=== PATIENT | female | born 1985 | race African-American/Black ===

== ENCOUNTER 2017-01-26 13:33 | Emergency (ER) | payer OTHER ==
[~2017-01-26] VITALS: Ht 167.6 cm; Wt 78.5 kg
[~2017-01-26 13:33] MED LIST: DOXYCYCLINE MO100 MG ORAL; IBUPROFEN600 MG ORAL; NKM
[2017-01-26 13:36] VITALS: BP 107/71
[2017-01-26] MEDS ORDERED: BACTRIM DS TAB1 EAC1 ORAL (14:11)
[2017-01-26] MEDS ORDERED: IBUPROFEN600 MG ORAL (14:11)
[2017-01-26] MEDS ORDERED: CEPHALEXIN500 MG ORAL (14:11)
[2017-01-26] MEDS ORDERED: BACITRACIN15 GM TOPIC (14:11)
[2017-01-26 14:30] VITALS: BP 107/71
--- NOTE | 2017-01-26 20:43 | Emergency Room Report ---
History of Present Illness General Chief Complaint: Skin Rash/Abscess Source: Patient Present Illness HPI The patient is a 31-year-old female presenting for possible skin infection. She states that she noticed pain and swelling to the right buttock area two days prior. Pain is a 7/10 dull ache and worse with touch. Does not radiate. She states that she noticed white discharge from the area yesterday. She denies any fever or chills. She denies any injury to the area. She denies any other symptoms Allergies: Coded Allergies: NO KNOWN ALLERGIES (Unverified Allergy, Unknown, 05/14/15) Patient History Past Medical History: see triage record Pertinent Family History: none Last Menstrual Period: 01/24/17 Now: No Reviewed Nursing Documentation: PMH: Agreed, PSxH: Agreed Nursing Documentation-PMH Past Medical History: No Stated History Review of Systems All Other Systems: negative except mentioned in HPI Physical Exam Vital Signs Date Time Temp Pulse Resp B/P (MAP) Pulse Ox O2 Delivery O2 Flow Rate FiO2 01/26/17 13:36 97.7 76 18 107/71 100 Room Air Sp02 EP Interpretation: reviewed, normal General Appearance: no apparent distress, alert, GCS 15, non-toxic Head: normocephalic, atraumatic Eyes: bilateral eye normal inspection, bilateral eye PERRL ENT: hearing grossly normal, normal pharynx, no angioedema, normal voice Rectal: deferred Genitourinary: normal inspection, no CVA tenderness Musculoskeletal: back normal, gait/station normal, normal range of motion, non- tender Neurologic: alert, oriented x3, responsive, motor strength/tone normal, sensory intact, speech normal Psychiatric: judgement/insight normal, memory normal, mood/affect normal, no suicidal/homicidal ideation Skin: rash - 2cm in diameter erythema to R superior buttock. No tracking to rectum. No surrounding erythema. TTP. Not fluctuant Lymphatic: no adenopathy Medical Decision Making PA Attestation Dr. Rousseau is my supervising physician. Patient management was discussed with my supervising physician Diagnostic Impression: Primary Impression: Abscess ER Course The patient is a 31-year-old female presenting for possible skin infection. Differential diagnoses considered but not limited to: abscess, cellulitis, insect bite, perianal abscess PE: afebrile. NAD Small non fluctuant abscess of R buttock. There is no indication for incision and drainage at this time. The patient will be discharged home with prescription for Keflex and Bactrim. She is to follow up with primary doctor. She is given indications to return for I and D. Last Vital Signs Date Time Temp Pulse Resp B/P (MAP) Pulse Ox O2 Delivery O2 Flow Rate FiO2 01/26/17 14:30 97.7 76 18 107/71 100 Room Air Status: improved Disposition: HOME, SELF-CARE Condition: Improved Scripts Bacitracin (Bacitracin) 28.4 Gm Oint...g. 1 APPLIC TOPIC THREE TIMES A DAY, #28 GM Prov: TERZIANJOSLYN P.A. 01/26/17 Trimethoprim/Sulfamethoxazole 160/800* (BACTRIM DS TABLET*) 1 Each Tablet 1 TAB ORAL TWICE A DAY, #14 TAB Prov: TERZIANMERLEY P.A. 01/26/17 Cephalexin* (KEFLEX*) 500 Mg Capsule 500 MG ORAL EVERY 12 HOURS, #14 CAP 0 Refills Prov: TERZIANJOSLYN P.A. 01/26/17 Ibuprofen* (MOTRIN*) 600 Mg Tablet 600 MG ORAL Q8H Y for For Pain, #30 TAB 0 Refills Prov: TERZIAN,JOSLYN P.A. 01/26/17 Referrals: [facility]OS[facility]/,REFERRING (PCP) Patient Instructions: Abscess Additional Instructions: I discussed my findings with the patient. All questions and concerns have been answered. Treatment and medication compliance have been addressed. I advised the patient that they need to follow up with PMD in 3-5 days. Return to ED if symptoms worsen, new symptoms arise, or if needed for any reason. Patient verbalized understanding of discharge instructions. Please return for further care if the pain worsens, if you notice fever or chills, if the abscess grows in size, or for any reason. JOSLYN GUARDADO Jan 26, 2017 20:43
== END 2017-01-26 14:50 | disposition left against medical advice (07) ==
LOC: EMR 14:46
DX: L02.31 Cutaneous abscess of buttock (principal)
CPT/HCPCS: 99284

== ENCOUNTER 2017-02-21 14:20 | Emergency (ER) | payer OTHER ==
[~2017-02-21] VITALS: Ht 167.6 cm; Wt 80.3 kg
[~2017-02-21 14:20] MED LIST changes: +BACITRACIN15 GM TOPIC; +BACTRIM DS TAB1 EAC1 ORAL; +CEPHALEXIN500 MG ORAL
[2017-02-21] MEDS ORDERED: CEPHALEXIN500 MG ORAL (15:25)
[2017-02-21] MEDS ORDERED: BACITRACIN15 GM TOPIC (15:25)
[2017-02-21] MEDS ORDERED: BACTRIM DS TAB1 EAC1 ORAL (15:25)
[2017-02-21 15:30] VITALS: BP 127/75
--- NOTE | 2017-02-21 20:15 | Emergency Room Report ---
History of Present Illness General Chief Complaint: Skin Rash/Abscess Source: Patient Present Illness HPI The patient is a 31-year-old female presenting for possible skin infection. She was seen in this emergency department one month prior for the same complaint and was placed on Keflex and Bactrim. She states that she took 3 days worth. She states that symptoms initially resolved and then returned. Pain is now 8/10 dull aching worse with touch. She denies any discharge from the area. She denies any other symptoms including N, V, F, chills, SOB, dysuria Allergies: Coded Allergies: NO KNOWN ALLERGIES (Unverified Allergy, Unknown, 05/14/15) Patient History Past Medical History: see triage record Pertinent Family History: none Reviewed Nursing Documentation: PMH: Agreed, PSxH: Agreed Nursing Documentation-PMH Past Medical History: No Stated History Review of Systems All Other Systems: negative except mentioned in HPI Physical Exam Vital Signs Date Time Temp Pulse Resp B/P (MAP) Pulse Ox O2 Delivery O2 Flow Rate FiO2 02/21/17 14:41 98.4 86 20 114/69 99 Room Air Sp02 EP Interpretation: reviewed, normal General Appearance: no apparent distress, alert, GCS 15, non-toxic Head: normocephalic, atraumatic Eyes: bilateral eye normal inspection, bilateral eye PERRL ENT: hearing grossly normal, normal pharynx, no angioedema, normal voice Gastrointestinal: normal bowel sounds, non tender, soft, non-distended, no guarding, no rebound Musculoskeletal: back normal, gait/station normal, normal range of motion, non- tender Neurologic: alert, oriented x3, responsive, motor strength/tone normal, sensory intact, speech normal Psychiatric: judgement/insight normal, memory normal, mood/affect normal, no suicidal/homicidal ideation Skin: rash - 3cm in diamater indurated erythematous region of the L anterior thigh. Tender. Lymphatic: no adenopathy Medical Decision Making PA Attestation Dr. Linares is my supervising physician. Patient management was discussed with my supervising physician Diagnostic Impression: Primary Impression: Cellulitis Qualified Codes: L03.116 - Cellulitis of left lower limb ER Course The patient is a 31-year-old female presenting for skin infection Differential diagnoses considered but not limited to: abscess, cellulitis, insect bite, contact dermatitis, among others PE: Afebrile. NAD 3cm in diameter indurated erythematous region of the L anterior thigh. Tender. Hot to the touch. No opening. No DC. No Fluctuance. The patient is again given prescriptions for antibiotics and this informed that she needs to complete them. She understands She will follow up with her primary doctor. ER precautions given Last Vital Signs Date Time Temp Pulse Resp B/P (MAP) Pulse Ox O2 Delivery O2 Flow Rate FiO2 02/21/17 15:30 98.4 84 16 127/75 99 Room Air Status: improved Disposition: HOME, SELF-CARE Condition: Improved Scripts Bacitracin (Bacitracin) 28.4 Gm Oint...g. 1 APPLIC TOPIC THREE TIMES A DAY, #30 GM Prov: JOSLYN GUARDADO.A. 02/21/17 Trimethoprim/Sulfamethoxazole 160/800* (BACTRIM DS TABLET*) 1 Each Tablet 1 TAB ORAL TWICE A DAY, #14 TAB Prov: JOSLYN GUARDADO P.A. 02/21/17 Cephalexin* (KEFLEX*) 500 Mg Capsule 500 MG ORAL EVERY 6 HOURS, #28 CAP Prov: JOSLYN GUARDADO P.A. 02/21/17 Referrals: [facility],REFERRING (PCP) Patient Instructions: Rash Additional Instructions: I discussed my findings with the patient. All questions and concerns have been answered. Treatment and medication compliance have been addressed. I advised the patient that they need to follow up with PMD in 3-5 days. Return to ED if symptoms worsen, new symptoms arise, or if needed for any reason. Patient verbalized understanding of discharge instructions. JOSLYN GUARDADO Feb 21, 2017 20:15
== END 2017-02-21 15:30 | disposition home or self-care (01) ==
LOC: EMR 15:10
DX: L03.116 Cellulitis of left lower limb (principal); R21 Rash and other nonspecific skin eruption
CPT/HCPCS: 99284

== ENCOUNTER 2017-02-26 13:19 | Emergency (ER) | payer OTHER ==
[~2017-02-26] VITALS: Ht 167.6 cm; Wt 80.3 kg
[2017-02-26 13:36] VITALS: BP 104/68
--- NOTE | 2017-02-26 14:14 | Emergency Room Report ---
History of Present Illness General Chief Complaint: Skin Rash/Abscess Source: Patient Present Illness HPI 31-year-old female presents to the emergency department complaining of pain that is 10 out of 10 in severity, swelling, erythema, tenderness to localized area of the right upper buttock. Patient states she has been taking antibiotic for abscess however it is not improving. Patient states that she initially refused incision and drainage however she believes that this time it is necessary. Patient denies trauma or fall. Patient denies fevers, chills, nausea, vomiting, rashes or lesions elsewhere. Patient states she is up-to- date with vaccinations. She denies history of immunocompromise.Denies CP, Palpitations, LOC, AMS, dizziness, Changes in Vision, Sensation, paresthesias, or a sudden severe headache. Allergies: Coded Allergies: NO KNOWN ALLERGIES (Unverified Allergy, Unknown, 05/14/15) Patient History Past Medical History: see triage record Past Surgical History: none Pertinent Family History: none Now: No Immunizations: UTD Reviewed Nursing Documentation: PMH: Agreed, PSxH: Agreed Nursing Documentation-PMH Past Medical History: No Stated History Review of Systems All Other Systems: negative except mentioned in HPI Physical Exam Vital Signs Date Time Temp Pulse Resp B/P (MAP) Pulse Ox O2 Delivery O2 Flow Rate FiO2 02/26/17 13:26 98.2 79 20 104/68 99 Room Air Sp02 EP Interpretation: reviewed, normal General Appearance: no apparent distress, alert, GCS 15, non-toxic Head: normocephalic, atraumatic Eyes: bilateral eye normal inspection, bilateral eye PERRL ENT: hearing grossly normal, normal voice Neck: full range of motion Respiratory: lungs clear, normal breath sounds, speaking full sentences Cardiovascular #1: regular rate, rhythm Musculoskeletal: back normal, gait/station normal, normal range of motion, non- tender Neurologic: alert, oriented x3, responsive, motor strength/tone normal, sensory intact, speech normal Skin: no rash, warm/dry, well hydrated, other - 2cm right buttock induration, fluctuance, erythema, swelling noted, no blisters, no vesicles. Procedures Incision and Drainage Incision and Drainage : Consent: Verbal Site: right upper buttock Blade Size: 11 I & D Procedure: betadine prep Wound Location: other - right upper buttock Wound's Depth, Shape: superficial Wound Length (cm): 1 Wound Explored: contaminated - 20cc of purulent d/c expressed Irrigated w/ Saline (ccs): 500 Anesthesia: 1% Lidocaine Volume Anesthetic (ccs): 2 Splint Applied?: No Sling Applied?: No Patient Tolerated: Well Complications: None Medical Decision Making PA Attestation Dr. Greenberg is my supervising Physician whom patient management has been discussed with. Diagnostic Impression: Primary Impression: Abscess ER Course 31-year-old female presents to the emergency department complaining of pain that is 10 out of 10 in severity, swelling, erythema, tenderness to localized area of the right upper buttock. Patient states she has been taking antibiotic for abscess however it is not improving. Patient states that she initially refused incision and drainage however she believes that this time it is necessary. Patient denies trauma or fall. Patient denies fevers, chills, nausea, vomiting, rashes or lesions elsewhere. Patient states she is up-to- date with vaccinations. She denies history of immunocompromise.Denies CP, Palpitations, LOC, AMS, dizziness, Changes in Vision, Sensation, paresthesias, or a sudden severe headache. Ddx considered but are not limited to cellulitis, abscess, cystic acne, necrotizing fasciitis, insect bite. Vital signs: are WNL, pt. is afebrile H&PE are most consistent with 2 cm abscess of the right upper buttock. ORDERS: none required at this time, the diagnosis is clinical ED INTERVENTIONS: -I & D. DISCHARGE: At this time pt. is stable for d/c to home. Will provide printed patient care instructions, and any necessary prescriptions. Care plan and follow up instructions have been discussed with the patient prior to discharge. Last Vital Signs Date Time Temp Pulse Resp B/P (MAP) Pulse Ox O2 Delivery O2 Flow Rate FiO2 02/26/17 13:36 98.2 20 104/68 99 Room Air 02/26/17 13:26 79 Disposition: HOME, SELF-CARE Condition: Stable Scripts Mupirocin Calcium (Bactroban) 15 Gm Cream..g. 1 APPLIC TOPIC THREE TIMES A DAY, #15 GM Prov: Yanique Angulo P.A. 02/26/17 Acetaminophen* (TYLENOL EXTRA STRENGTH*) 500 Mg Tablet 500 MG ORAL Q6H, #20 TAB 0 Refills Prov: Yanique Angulo P.A. 02/26/17 Doxycycline Hyclate* (VIBRAMYCIN*) 100 Mg Capsule 100 MG ORAL EVERY 12 HOURS for 7 Days, #14 CAP 0 Refills Prov: Yanique Angulo 02/26/17 Referrals: NON PHYSICIAN (PCP) Patient Instructions: Abscess Additional Instructions: Take medications as directed. Follow up with a Primary Care Provider in 3-5 days, even if your symptoms have resolved. --Please review list of primary care clinics, if you do not already have a primary care provider Return sooner to ED if new symptoms occur, or current symptoms become worse. - Please note that this Emergency Department Report was dictated using [employer] technology software, occasionally this can lead to erroneous entry secondary to interpretation by the dictation equipment. Yanique Angulo Feb 26, 2017 14:14
[2017-02-26] MEDS ORDERED: Lidocaine 1% MPF 10mg/ml 5ml INJ ONE (14:15)
[2017-02-26] MEDS ORDERED: VIBRAMYCIN100 MG ORAL (14:26)
[2017-02-26] MEDS ORDERED: TYLENOL EXTRA500 MG ORAL (14:26)
[2017-02-26] MEDS ORDERED: BACTROBAN CR1 APPLIC TOPIC (14:26)
[2017-02-26 14:56] VITALS: BP 104/68
== END 2017-02-26 14:56 | disposition home or self-care (01) ==
LOC: EMR 14:04
DX: L02.31 Cutaneous abscess of buttock (principal)
CPT/HCPCS: 10060; 99284

== ENCOUNTER 2017-03-05 05:32 | Emergency (ER) | payer OTHER ==
[~2017-03-05] VITALS: Ht 167.6 cm; Wt 77.6 kg
[~2017-03-05 05:32] MED LIST changes: +BACTROBAN CR1 APPLIC TOPIC; +TYLENOL EXTRA500 MG ORAL; +VIBRAMYCIN100 MG ORAL
[2017-03-05 05:54] VITALS: BP 109/74
[2017-03-05] MEDS ORDERED: Lidocaine 1% 10mg/ml/Epi 0.005mg/ml 10ml vial INJ ONE (06:15)
[2017-03-05] MEDS ORDERED: Lidocaine 1% 10mg/ml/EPI 0.01mg/ml 50ml INJ ONE ×2 (06:22→07:30)
[2017-03-05 06:43] VITALS: BP 115/78
--- NOTE | 2017-03-05 07:06 | Emergency Room Report ---
History of Present Illness General Chief Complaint: Skin Rash/Abscess Source: Patient Present Illness HPI Patient 31-year-old female who presented after several days of increased right- sided buttock swelling. Patient prior history of abscess. She did not take her antibiotics after recently having I incision and drainage. Patient denied any fever. She denied history of HIV or diabetes. As she denied other locations of swelling or pain. She denied injection drug use. Allergies: Coded Allergies: NO KNOWN ALLERGIES (Unverified Allergy, Unknown, 05/14/15) Patient History Past Medical History: see triage record Last Menstrual Period: Feb 13, 2017 Reviewed Nursing Documentation: PMH: Agreed, PSxH: Agreed Nursing Documentation-PMH Past Medical History: No Stated History Review of Systems All Other Systems: negative except mentioned in HPI Physical Exam Vital Signs Date Time Temp Pulse Resp B/P (MAP) Pulse Ox O2 Delivery O2 Flow Rate FiO2 03/05/17 05:33 97.9 69 14 109/74 99 Room Air General Appearance: well appearing, no apparent distress, alert, GCS 15, non- toxic Head: normocephalic, atraumatic ENT: hearing grossly normal, normal voice Neck: full range of motion, supple Respiratory: no respiratory distress, speaking full sentences Musculoskeletal: normal inspection, no calf tenderness Neurologic: normal gait Psychiatric: mood/affect normal Skin: other - fluctuance to right buttock Procedures Laceration/Wound Repair Laceration/Wound Repair : Consent: Verbal Wound's Depth, Shape: superficial Wound Length (cm): 2 Wound Explored: clean Betadine Prep?: Yes Anesthesia: Lidocaine w/ Epi Volume Anesthetic (ccs): 3 Wound Debrided: minimal Patient Tolerated: Well Complications: None Medical Decision Making Diagnostic Impression: Primary Impression: Abscess ER Course Patient presented for skin rash. Differential diagnosis included was not limited to abscess, cellulitis, folliculitis, Fourniere's gangrene. The patient has abscess incised and drained.The patient is advised to follow up with primary care doctor in 2 days for wound recheck. Patient is advised to return if any worsening condition or if any changes in status that are concerning. Last Vital Signs Date Time Temp Pulse Resp B/P (MAP) Pulse Ox O2 Delivery O2 Flow Rate FiO2 03/05/17 06:43 71 20 115/78 100 Room Air 03/05/17 05:54 97.9 Status: improved Disposition: HOME, SELF-CARE Condition: Stable Referrals: [facility],REFERRING (PCP) Patient Instructions: Taz Bruner Mar 05, 2017 07:06
== END 2017-03-05 06:44 | disposition home or self-care (01) ==
LOC: EMR 06:06
DX: L02.31 Cutaneous abscess of buttock (principal)
CPT/HCPCS: 10060; 99283; Z7502

== ENCOUNTER 2017-04-03 20:20 | Emergency (ER) | payer OTHER ==
[~2017-04-03] VITALS: Ht 167.6 cm; Wt 79.4 kg
[2017-04-03 21:00] VITALS: BP 118/78
--- NOTE | 2017-04-03 21:15 | Emergency Room Report ---
History of Present Illness General Chief Complaint: Upper Respiratory Illness Source: Patient Present Illness [facility] This is a 31-year-old female with no significant past medical history. She presents with chief complaint of cough for one to 2 days. Her daughter is sick also. Mom sick also. She denies any fever chills but no nausea no vomiting. No complaint. Allergies: Coded Allergies: NO KNOWN ALLERGIES (Unverified Allergy, Unknown, 05/14/15) Patient History Past Medical History: see triage record, old chart reviewed Past Surgical History: none Pertinent Family History: none Social History: Denies: smoking Last Menstrual Period: mar 23 Now: No : 1 Immunizations: other Reviewed Nursing Documentation: PMH: Agreed, PSxH: Agreed Nursing Documentation-PMH Past Medical History: No Stated History Review of Systems Eye: Denies: eye pain, blurred vision ENT: Denies: ear pain, nose congestion, throat swelling Respiratory: Reports: cough, Denies: shortness of breath Cardiovascular: Denies: chest pain, palpitations Gastrointestinal: Denies: abdominal pain, diarrhea, nausea, vomiting Musculoskeletal: Denies: back pain, joint pain Skin: Denies: rash Neurological: Denies: headache, numbness Endocrine: Denies: increased thirst, increased urine Hematologic/Lymphatic: Denies: easy bruising All Other Systems: negative except mentioned in HPI Physical Exam Vital Signs Date Time Temp Pulse Resp B/P (MAP) Pulse Ox O2 Delivery O2 Flow Rate FiO2 04/03/17 20:23 99.0 85 18 118/78 100 Room Air vitals normal Sp02 EP Interpretation: reviewed, normal General Appearance: well appearing, no apparent distress, alert Head: normocephalic, atraumatic Eyes: bilateral eye PERRL, bilateral eye EOMI ENT: hearing grossly normal, normal pharynx Neck: full range of motion, supple, no meningismus Respiratory: chest non-tender, lungs clear, normal breath sounds Cardiovascular #1: regular rate, rhythm, no murmur Gastrointestinal: normal bowel sounds, non tender, no mass, no organomegaly, no bruit, non-distended Musculoskeletal: back normal, gait/station normal, normal range of motion Psychiatric: mood/affect normal Skin: warm/dry Medical Decision Making Diagnostic Impression: Primary Impression: Upper respiratory infection Qualified Codes: J06.9 - Acute upper respiratory infection, unspecified; B97.89 - Other viral agents as the cause of diseases classified elsewhere ER Course Vision with a viral upper respiratory infection. Looks well. No pneumonia. We 'll discharge home Last Vital Signs Date Time Temp Pulse Resp B/P (MAP) Pulse Ox O2 Delivery O2 Flow Rate FiO2 04/03/17 21:00 99.0 85 18 118/78 100 Room Air Status: unchanged Disposition: HOME, SELF-CARE Condition: Stable Patient Instructions: Upper Respiratory Infection, Adult Additional Instructions: followup with your Dr. in 7 days. Return if worse. ZACKARY DEVINE M.D. Apr 03, 2017 21:15
[2017-04-03 21:20] VITALS: BP 118/78
== END 2017-04-03 21:20 | disposition home or self-care (01) ==
LOC: EMR 21:10
DX: J06.9 Acute upper respiratory infection, unspecified (principal)
CPT/HCPCS: 99282

== ENCOUNTER 2017-06-03 21:48 | Emergency (ER) | payer OTHER ==
[~2017-06-03] VITALS: Ht 167.6 cm; Wt 79.4 kg
[2017-06-03 22:10] VITALS: BP 129/79
--- NOTE | 2017-06-03 22:45 | Emergency Room Report ---
History of Present Illness General Chief Complaint: Sore Throat Source: Patient Present Illness HPI Patient presents with throat pain. This for 2 days. Pain with swallowing. Feverish. No cough. Not . No NVD. No rashes. No chest pain. Pain 10/10 sharp and burning, in pharynx, constant but worse when swallowing. No meds taken. Daughter with earache. No co-morbidities. Allergies: Coded Allergies: NO KNOWN ALLERGIES (Unverified Allergy, Unknown, 05/14/15) Patient History Social History: Reports: smoking Social History Narrative with daughter Last Menstrual Period: May Nursing Documentation-[facility] Past Medical History: No Stated History Review of Systems All Other Systems: negative except mentioned in HPI Physical Exam Vital Signs Date Time Temp Pulse Resp B/P (MAP) Pulse Ox O2 Delivery O2 Flow Rate FiO2 06/03/17 21:53 99.7 83 16 129/79 96 Room Air Sp02 EP Interpretation: reviewed, normal General Appearance: well appearing, no apparent distress Head: normocephalic, atraumatic Eyes: bilateral eye normal inspection ENT: hearing grossly normal, no angioedema, normal voice, TMs + canals normal, tonsillar swelling, pharyngeal erythema Neck: full range of motion, supple Respiratory: lungs clear, no respiratory distress, speaking full sentences Cardiovascular #1: regular rate, rhythm Gastrointestinal: non tender, scaphoid Musculoskeletal: gait/station normal, normal range of motion Neurologic: alert, normal gait, grossly normal Psychiatric: mood/affect normal Skin: no rash Medical Decision Making Diagnostic Impression: Primary Impression: Pharyngitis Qualified Codes: J02.9 - Acute pharyngitis, unspecified ER Course Patient with sore throat. DDx; viral, strep amongst others. Daughter with otitis which make bacterial more suspect. Will treat with antibiotics. (Smiling and not appear affected by pain.) Patient stable for outpatient observation and treatment. Last Vital Signs Date Time Temp Pulse Resp B/P (MAP) Pulse Ox O2 Delivery O2 Flow Rate FiO2 06/03/17 22:57 99.7 83 16 129/79 96 Room Air Status: improved Disposition: HOME, SELF-CARE Condition: Improved Scripts Amoxicillin* (AMOXIL*) 500 Mg Capsule 500 MG ORAL EVERY 8 HOURS, #28 CAP Prov: Mark De La Rosa M.D. 06/03/17 Referrals: [facility],REFERRING (PCP) Mark De La Rosa M.D. 23, 2018 22:45
[2017-06-03] MEDS ORDERED: AMOXICILLIN500 MG ORAL (22:47)
[2017-06-03 22:57] VITALS: BP 129/79
== END 2017-06-03 22:58 | disposition home or self-care (01) ==
LOC: EMR 22:05
DX: J02.9 Acute pharyngitis, unspecified (principal)
CPT/HCPCS: 99283

== ENCOUNTER 2018-01-28 10:26 | Emergency (ER) | payer OTHER ==
[~2018-01-28] VITALS: Ht 167.6 cm; Wt 81.6 kg
[~2018-01-28 10:26] MED LIST changes: +AMOXICILLIN500 MG ORAL
[2018-01-28 10:46] VITALS: BP 138/89
[2018-01-28 11:25] LABS: APPEARANCE,URINE CLOUDY; BILIRUBIN, URINE NEGATIVE (NEGATIVE); GLUCOSE, URINE (UA) NEGATIVE (NEGATIVE); KETONES,URINE NEGATIVE (NEGATIVE); LEUKOCYTE ESTERASE ,URINE 1+ (NEGATIVE); NITRITE,URINE NEGATIVE (NEGATIVE); PH,URINE 7 (4.5-8.0); PROTEIN,URINE NEGATIVE (NEGATIVE); UROBILINOGEN,URINE NORMAL MG/DL (0.0-1.0)
[2018-01-28 11:26] LABS: COLOR,URINE YELLOW
--- NOTE | 2018-01-28 12:18 | Emergency Room Report ---
History of Present Illness General Chief Complaint: Nausea, Vomiting, and Diarrhea Source: Patient Present Illness HPI Patient with NVD since last Friday. Occasionally able to keep down water, but now vomiting up bile. Feels weak when she stands. Cramping abd pain rated 5/ 10 more epigastric and not radiating. No fever documented but felt feverish few days ago. No dysuria. Diarrhea normal color without blood. Watery. No travel or unusual foods. Tried peptobismol and another OTC med without help. No URI sy. No joint pain, rashes. LNMP 9/5, normal for her. Denies medical problems. Allergies: Coded Allergies: NO KNOWN ALLERGIES (Unverified Allergy, Unknown, 05/14/15) Patient History Past Medical History: see triage record Social History: Reports: smoking Social History Narrative caregiver Last Menstrual Period: 01/14/18 Now: No : 3 Para: 1 Reviewed Nursing Documentation: PMH: Agreed; PSxH: Agreed Nursing Documentation-PMH Past Medical History: No Stated History Review of Systems All Other Systems: negative except mentioned in HPI Physical Exam Vital Signs Date Time Temp Pulse Resp B/P (MAP) Pulse Ox O2 Delivery O2 Flow Rate FiO2 01/28/18 10:33 98.2 68 18 138/89 100 Room Air 98.2 General Appearance: well appearing, no apparent distress, GCS 15 Head: normocephalic, atraumatic Eyes: bilateral eye normal inspection, bilateral eye PERRL ENT: hearing grossly normal, normal voice, moist mucus membranes Neck: full range of motion, supple Respiratory: lungs clear, no respiratory distress, speaking full sentences Cardiovascular #1: regular rate, rhythm Cardiovascular #2: 2+ radial (R) Gastrointestinal: normal bowel sounds, soft, non-distended, no guarding, no rebound, tenderness - epigastric Genitourinary: no CVA tenderness Musculoskeletal: no calf tenderness Neurologic: alert, normal gait, grossly normal Psychiatric: mood/affect normal Skin: no rash Medical Decision Making Diagnostic Impression: Primary Impression: Gastroenteritis ER Course Patient with NVD. DDx: GItis, pancreatitis, gastritis, amongst others. Patient with persistent vomiting. Evaluation with UA. Treatment with IV hydration, zofran and tylenol. Vomited tylenol. UA normal with neg preg. Tolerating oral intake without difficulty. Improved. Abd soft. Patient stable for outpatient observation and treatment. Laboratory Tests Test 01/28/18 10:59 Urine Color Yellow Urine Appearance Cloudy Urine pH 7 (4.5-8.0) Urine Specific [place] 1.005 (1.005-1.035) Urine Protein Negative (NEGATIVE) Urine Glucose (UA) Negative (NEGATIVE) Urine Ketones Negative (NEGATIVE) Urine Blood 3+ (NEGATIVE) H Urine Nitrite Negative (NEGATIVE) Urine Bilirubin Negative (NEGATIVE) Urine Urobilinogen Normal MG/DL (0.0-1.0) Urine Leukocyte Esterase 1+ (NEGATIVE) H Urine RBC 5-10 /HPF (0 - 2) H Urine WBC 2-4 /HPF (0 - 2) Urine Squamous Epithelial Cells Moderate /LPF (NONE/OCC) H Urine Bacteria Few /HPF (NONE) Urine HCG, Qualitative Negative (NEGATIVE) Last Vital Signs Date Time Temp Pulse Resp B/P (MAP) Pulse Ox O2 Delivery O2 Flow Rate FiO2 01/28/18 12:23 98.2 68 18 138/89 100 Room Air 208.8 Status: improved Disposition: HOME, SELF-CARE Condition: Improved Scripts Ondansetron Odt* (ZOFRAN ODT*) 4 Mg Tab.rapdis 4 MG BC EVERY 8 HOURS, #4 TAB 1 Refill Prov: Mark De La Rosa M.D. 01/28/18 Referrals: [facility],REFERRING (PCP) Mark De La Rosa M.D. Jan 28, 2018 12:18
[2018-01-28] MEDS ORDERED: ONDANSETRON ODT4 MG BC (12:20)
[2018-01-28 12:23] VITALS: BP 138/89
== END 2018-01-28 12:26 | disposition home or self-care (01) ==
LOC: EMR 11:00
DX: K52.9 Noninfective gastroenteritis and colitis, unspecified (principal); R11.2 Nausea with vomiting, unspecified; Z72.0 Tobacco use
CPT/HCPCS: 81003; 81025; 99282